=== PATIENT | male | born 1960 | race Caucasian/White ===

== ENCOUNTER 2021-11-24 15:36 | Inpatient (IN) ==
[2021-11-24 20:55] LABS: Basophils # 0.1 K/mcL (0.0-0.2); Basophils % 1.3 %; Eosinophils # 0.2 K/mcL (0.0-0.6); Eosinophils % 3.5 %; Hematocrit 47.5 % (37.5-50.1); Hemoglobin 15.6 g/dL (12.9-16.9); Immature Granulocytes % 0.4 % (0-4); Lymphocytes # 1.2 K/mcL (0.6-4.6); Lymphocytes % 17.8 %; Mean Corpuscular HGB Conc 32.8 g/dL (31.6-35.5); Mean Corpuscular Hemoglobin 28.3 pg (28.0-33.3); Mean Corpuscular Volume 86.2 fL (83.0-100.0); Mean Platelet Volume 10.8 fL (9.4-12.4); Monocytes # 0.6 K/mcL (0.0-1.3); Monocytes % 8.8 %; Neutrophils # 4.6 K/mcL (1.6-8.9); Platelet Count 160 K/mcL (140-400); Red Blood Count 5.51 M/mcL (4.19-5.50); Red Cell Distribution Width 13.4 % (11.5-14.5); Segmented Neutrophils % 68.2 %; White Blood Count 6.8 K/mcL (4.3-11.1)
[2021-11-24 21:05] LABS: INR 1.1
[2021-11-24 21:07] LABS: Activated Partial Thrombo Time 35.3 Seconds (26.0-36.0)
[2021-11-24 21:16] LABS: Alanine Aminotransferase 235 Units/L (7-52); Albumin/Globulin Ratio 1.2 (1.1-2.2); Alkaline Phosphatase 273 Units/L (34-104); Aspartate Amino Transferase 135 Units/L (13-39); BUN/Creatinine Ratio 16 (6-26); Bilirubin,Direct 5.4 mg/dL (0.0-0.2); Bilirubin,Indirect 2.2 mg/dL (0.0-1.0); Bilirubin,Total 7.6 mg/dL (0.3-1.0); Blood Urea Nitrogen 12 mg/dL (6-20); Calcium 9.6 mg/dL (8.6-10.3); Carbon Dioxide 22 mEq/L (23-29); Chloride 100 mEq/L (98-107); Creatine Kinase 48 Units/L (30-223); Globulin 3.3 g/dL (2.4-3.5); Glucose 219 mg/dL (70-105); Lipase 172 Units/L (11-82); Osmolality,Calculated 278 (280-300); Sodium 131 mEq/L (136-145); Total Protein 7.3 g/dL (6.4-8.9); eGFR For African Americans > 60 (> 60); eGFR For Non-African Americans > 60 (> 60)
[2021-11-24] MEDS ORDERED: Piperacillin/Tazobactam 3.375 GM in Water for inj. (sterile) 20 ML IVP ONE (21:18)
[2021-11-24 22:36] LABS: Influenza A PCR Negative (Negative); Influenza B PCR Negative (Negative); Resp. Syncytial Virus PCR Negative (Negative)
[2021-11-24] MEDS ORDERED: 0.9 % Sodium Chloride 1,000 ML IVC ONE (22:37)
[2021-11-24 22:52] LABS: SARS-CoV-2 by PCR (In House) Negative (Negative)
[2021-11-24] MEDS ORDERED: Ringers Solution, Lactated 1,000 ML IVC SCH (23:45)
[2021-11-24] MEDS ORDERED: Naloxone 0.4 MG/ML INJ IVP PRN (23:46)
[2021-11-24] MEDS ORDERED: Ondansetron 4 MG/2 ML VIAL IVP PRN (23:46)
[2021-11-25] MEDS ORDERED: *HR* Dextrose 50 % in Water (Syg) 50 ML SYRINGE IVP PRN (00:15)
[2021-11-25] MEDS ORDERED: D5% in Water 1,000 ML IVC PRN (00:15)
[2021-11-25] MEDS ORDERED: Dextrose Gel 15 GM/37.5 ML TUBE PO PRN ×2 (00:15)
[2021-11-25 02:31] LABS: Bilirubin,Urine Small (Negative); Blood,Urine Negative (Negative); Clarity,Urine Clear (Clear); Color,Urine Dark-Yellow (Yellow); Glucose,Urine (UA) >=1000 mg/dL (Normal); Ketones,Urine 40 mg/dL (Negative); Leukocyte Esterase,Urine Negative (Negative); Mucus,Urine Few per lpf (None-Few); Nitrite,Urine Negative (Negative); PH,Urine 5.5 pH Units (5.0-8.0); Protein,Urine Negative (Neg-Trace); RBC,Urine 0-3 per hpf (0-3); Specific Gravity,Urine 1.014 (1.010-1.025); Urobilinogen,Urine Normal (Normal); WBC,Urine 0-3 per hpf (0-3)
[2021-11-25 03:13] LABS: Eosinophils % 3.9 %; Red Cell Distribution Width 13.5 % (11.5-14.5)
[2021-11-25 03:15] LABS: Basophils # 0.1 K/mcL (0.0-0.2); Basophils % 0.9 %; Eosinophils # 0.3 K/mcL (0.0-0.6); Hematocrit 43.5 % (37.5-50.1); Hemoglobin 14.2 g/dL (12.9-16.9); Immature Granulocytes % 0.5 % (0-4); Immature Platelets 5.6 % (1.1-6.1); Lymphocytes % 16.4 %; Mean Corpuscular HGB Conc 32.6 g/dL (31.6-35.5); Mean Corpuscular Hemoglobin 28.3 pg (28.0-33.3); Mean Corpuscular Volume 86.8 fL (83.0-100.0); Mean Platelet Volume 11.1 fL (9.4-12.4); Monocytes # 0.7 K/mcL (0.0-1.3); Monocytes % 10.2 %; Platelet Count 144 K/mcL (140-400); Red Blood Count 5.01 M/mcL (4.19-5.50); Segmented Neutrophils % 68.1 %; White Blood Count 6.4 K/mcL (4.3-11.1)
[2021-11-25 03:20] LABS: Lymphocytes # 1.1 K/mcL (0.6-4.6); Neutrophils # 4.4 K/mcL (1.6-8.9)
[2021-11-25 03:33] LABS: INR 1.1; Prothrombin Time 12.3 Seconds (9.4-12.1)
[2021-11-25 03:34] LABS: Alanine Aminotransferase 199 Units/L (7-52); Albumin 3.7 g/dL (3.5-5.7); Albumin/Globulin Ratio 1.4 (1.1-2.2); Alkaline Phosphatase 243 Units/L (34-104); Aspartate Amino Transferase 111 Units/L (13-39); BUN/Creatinine Ratio 17 (6-26); Bilirubin,Direct 5.3 mg/dL (0.0-0.2); Bilirubin,Indirect 2.2 mg/dL (0.0-1.0); Bilirubin,Total 7.5 mg/dL (0.3-1.0); Blood Urea Nitrogen 13 mg/dL (6-20); Calcium 8.9 mg/dL (8.6-10.3); Carbon Dioxide 21 mEq/L (23-29); Chloride 102 mEq/L (98-107); Chol/HDL Ratio 8.8 (0-4.9); Cholesterol 212 mg/dL (< 200); Estimated Average Glucose 258 mg/dl; Globulin 2.7 g/dL (2.4-3.5); Glucose 212 mg/dL (70-105); HDL Cholesterol 24 mg/dL (40-59); Hemoglobin A1C 10.6 %; LDL Cholesterol,Calculated 150 mg/dL (< 100); Lipase 254 Units/L (11-82); Osmolality,Calculated 284 (280-300); Phosphorous 3.3 mg/dL (2.7-4.5); Potassium 3.9 mEq/L (3.5-5.1); Sodium 134 mEq/L (136-145); Total Protein 6.4 g/dL (6.4-8.9); Triglycerides 192 mg/dL (< 150); eGFR For African Americans > 60 (> 60); eGFR For Non-African Americans > 60 (> 60)
[2021-11-25 08:41] LABS: Hepatitis B Surface Antigen Nonreactive (Nonreactive)
[2021-11-25] MEDS: Ringers Solution, Lactated 1,000 ML IVC SCH ×2 (08:53→13:49)
[2021-11-25] MEDS: Piperacillin/Tazobactam 3.375 GM in 0.9 % Sodium Chloride Mini Bag 100 ML IVPB SCH ×3 (08:54→23:12)
[2021-11-25] MEDS: Insulin LISPRO 300 UNITS/3 ML VIAL SUBQ SCH ×4 (08:59→23:31)
[2021-11-25 09:10] LABS: Hepatitis A Antibody IgM Nonreactive (Nonreactive)
[2021-11-25 09:11] LABS: Hepatitis B Core IgM Nonreactive (Nonreactive)
[2021-11-25 09:12] LABS: Hepatitis C Virus Antibody Nonreactive (Nonreactive)
[2021-11-25] MEDS: Ipratropium/Albuterol Neb 3 ML IH SCH ×5 (10:03→23:57)
[2021-11-25] MEDS ORDERED: Lidocaine HCL 4 ML Topical Solution (Laryng-O-Jet Kit Sterile Pak) TP ONE (13:08)
[2021-11-25] MEDS ORDERED: Lidocaine -MPF 2% 5 ML VIAL ONE (13:08)
[2021-11-25] MEDS ORDERED: *HR* Rocuronium Bromide 50 MG/5 ML VIAL ONE ×2 (13:08→14:02)
[2021-11-25] MEDS ORDERED: *HR* Propofol 200 MG/20 ML VIAL IVP ONE (13:08)
[2021-11-25] MEDS ORDERED: Ondansetron 4 MG/2 ML VIAL ONE (13:08)
[2021-11-25] MEDS ORDERED: *HR* FentaNYL (PF) 100 MCG/2 ML VIAL ONE (13:46)
[2021-11-25] MEDS ORDERED: Ondansetron 4 MG/2 ML VIAL IVP PRN (14:15)
[2021-11-25] MEDS ORDERED: Gadolinium Contrast Agent (WT Based) IV PRN (14:23)
[2021-11-25] MEDS ORDERED: Indomethacin 50 MG SUPP.RECT RC ONE (14:27)
[2021-11-25] MEDS ORDERED: GADOBUTROL 30 MMOL/30 ML VIAL IVP ONE (16:30)
[2021-11-26] MEDS: Ipratropium/Albuterol Neb 3 ML IH SCH ×3 (04:13→11:34)
[2021-11-26 04:45] LABS: Basophils % 0.6 %; Eosinophils # 0.1 K/mcL (0.0-0.6); Eosinophils % 0.9 %; Hematocrit 41.5 % (37.5-50.1); Hemoglobin 13.9 g/dL (12.9-16.9); Immature Granulocytes % 0.4 % (0-4); Lymphocytes # 1.1 K/mcL (0.6-4.6); Lymphocytes % 15.3 %; Mean Corpuscular HGB Conc 33.5 g/dL (31.6-35.5); Mean Corpuscular Hemoglobin 28.9 pg (28.0-33.3); Mean Corpuscular Volume 86.3 fL (83.0-100.0); Monocytes # 0.7 K/mcL (0.0-1.3); Monocytes % 9.3 %; Neutrophils # 5.1 K/mcL (1.6-8.9); Platelet Count 155 K/mcL (140-400); Red Blood Count 4.81 M/mcL (4.19-5.50); Red Cell Distribution Width 13.5 % (11.5-14.5); Segmented Neutrophils % 73.5 %
[2021-11-26 05:04] LABS: BUN/Creatinine Ratio 25 (6-26); Blood Urea Nitrogen 19 mg/dL (6-20); Calcium 9.1 mg/dL (8.6-10.3); Carbon Dioxide 21 mEq/L (23-29); Chloride 104 mEq/L (98-107); Glucose 259 mg/dL (70-105); Osmolality,Calculated 285 (280-300); Phosphorous 4.1 mg/dL (2.7-4.5); Potassium 3.9 mEq/L (3.5-5.1); Sodium 132 mEq/L (136-145); eGFR For African Americans > 60 (> 60); eGFR For Non-African Americans > 60 (> 60)
[2021-11-26] MEDS: Insulin LISPRO 300 UNITS/3 ML VIAL SUBQ SCH ×2 (05:49→12:26)
[2021-11-26 07:03] LABS: Alanine Aminotransferase 165 Units/L (7-52); Albumin 3.6 g/dL (3.5-5.7); Albumin/Globulin Ratio 1.3 (1.1-2.2); Alkaline Phosphatase 250 Units/L (34-104); Aspartate Amino Transferase 70 Units/L (13-39); Bilirubin,Direct 2.2 mg/dL (0.0-0.2); Bilirubin,Indirect 1.6 mg/dL (0.0-1.0); Bilirubin,Total 3.8 mg/dL (0.3-1.0); Globulin 2.8 g/dL (2.4-3.5); Total Protein 6.4 g/dL (6.4-8.9)
[2021-11-26] MEDS: Piperacillin/Tazobactam 3.375 GM in 0.9 % Sodium Chloride Mini Bag 100 ML IVPB SCH (08:49)
[2021-11-26] MEDS ORDERED: amLODIPine 5 MG TABLET PO SCH (09:00)
[2021-11-26] MEDS ORDERED: lisinopriL 20 MG TABLET PO SCH (09:00)
[2021-11-26] MEDS ORDERED: Acetaminophen 325 MG TABLET PO PRN (10:00)
[2021-11-26 14:13] VITALS: BP 133/66; PULSE 95; TEMP 97.3; O2SAT 95
[2021-11-26] MEDS ORDERED: Insulin LISPRO 300 UNITS/3 ML VIAL SUBQ SCH (16:30)
== END 2021-11-26 15:50 | disposition home or self-care (01) | DRG 444 ==
LOC: 3ANU 15:36 → EMEROOARM 15:36 → 3ANU 11-25
PROVIDERS: ADMIT Student in an Organized Health Care Education/Training Program; ATTEND Student in an Organized Health Care Education/Training Program

== ENCOUNTER 2021-12-15 16:09 | Inpatient (IN) ==
[2021-12-15 18:53] LABS: Basophils # 0.1 K/mcL (0.0-0.2); Basophils % 1.1 %; Eosinophils # 0.1 K/mcL (0.0-0.6); Eosinophils % 2.2 %; Hematocrit 43.7 % (37.5-50.1); Hemoglobin 14.4 g/dL (12.9-16.9); Immature Granulocytes % 0.8 % (0-4); Lymphocytes # 0.9 K/mcL (0.6-4.6); Lymphocytes % 14.4 %; Mean Corpuscular Hemoglobin 28.2 pg (28.0-33.3); Mean Corpuscular Volume 85.7 fL (83.0-100.0); Mean Platelet Volume 11.5 fL (9.4-12.4); Monocytes # 0.6 K/mcL (0.0-1.3); Monocytes % 9.7 %; Neutrophils # 4.6 K/mcL (1.6-8.9); Platelet Count 237 K/mcL (140-400); Red Cell Distribution Width 14.6 % (11.5-14.5); Segmented Neutrophils % 71.8 %; White Blood Count 6.4 K/mcL (4.3-11.1)
[2021-12-15 19:13] LABS: Alanine Aminotransferase 76 Units/L (7-52); Albumin 3.7 g/dL (3.5-5.7); Albumin/Globulin Ratio 0.9 (1.1-2.2); Alkaline Phosphatase 502 Units/L (34-104); Aspartate Amino Transferase 59 Units/L (13-39); BUN/Creatinine Ratio 18 (6-26); Bilirubin,Direct 5.8 mg/dL (0.0-0.2); Bilirubin,Indirect 3.8 mg/dL (0.0-1.0); Bilirubin,Total 9.6 mg/dL (0.3-1.0); Blood Urea Nitrogen 13 mg/dL (6-20); Calcium 9.5 mg/dL (8.6-10.3); Carbon Dioxide 23 mEq/L (23-29); Chloride 90 mEq/L (98-107); Globulin 3.9 g/dL (2.4-3.5); Glucose 328 mg/dL (70-105); Lipase 256 Units/L (11-82); Osmolality,Calculated 277 (280-300); Potassium 4.1 mEq/L (3.5-5.1); Sodium 127 mEq/L (136-145); Total Protein 7.6 g/dL (6.4-8.9); eGFR For African Americans > 60 (> 60); eGFR For Non-African Americans > 60 (> 60)
[2021-12-15] MEDS ORDERED: 0.9 % Sodium Chloride 1,000 ML IVC ONE (19:16)
[2021-12-15 20:04] LABS: Bilirubin,Urine Small (Negative); Blood,Urine Negative (Negative); Clarity,Urine Clear (Clear); Color,Urine Yellow (Yellow); Glucose,Urine (UA) >=1000 mg/dL (Normal); Ketones,Urine 40 mg/dL (Negative); Leukocyte Esterase,Urine Negative (Negative); Mucus,Urine Few per lpf (None-Few); Nitrite,Urine Negative (Negative); Protein,Urine Negative (Neg-Trace); RBC,Urine 0-3 per hpf (0-3); Specific Gravity,Urine 1.025 (1.010-1.025); WBC,Urine 0-3 per hpf (0-3)
[2021-12-15] MEDS ORDERED: Naloxone 0.4 MG/ML INJ IVP PRN (20:30)
[2021-12-15] MEDS ORDERED: Acetaminophen 325 MG TABLET PO PRN (20:30)
[2021-12-15] MEDS ORDERED: *HR* HYDROcodone/Acet 5/325 mg TABLET PO PRN (20:30)
[2021-12-15] MEDS ORDERED: Ondansetron ODT 4 MG TAB.RAPDIS SL PRN (20:30)
[2021-12-15] MEDS ORDERED: Melatonin 3 MG TABLET PO PRN (20:30)
[2021-12-15] MEDS ORDERED: Dextrose Gel 15 GM/37.5 ML TUBE PO PRN ×2 (22:07)
[2021-12-15] MEDS ORDERED: *HR* Dextrose 50 % in Water (Syg) 50 ML SYRINGE IVP PRN (22:07)
[2021-12-15] MEDS ORDERED: D5% in Water 1,000 ML IVC PRN (22:07)
[2021-12-15] MEDS: Insulin DETEMIR 100 UNIT/ML X5UNITS SUBQ SCH (22:29)
[2021-12-15] MEDS: lisinopriL 20 MG TABLET PO SCH (22:29)
[2021-12-16] MEDS: Piperacillin/Tazobactam 3.375 GM in 0.9 % Sodium Chloride Mini Bag 100 ML IVPB SCH ×3 (00:12→16:25)
[2021-12-16] MEDS: Insulin LISPRO 300 UNITS/3 ML VIAL SUBQ SCH ×5 (00:12→20:48)
[2021-12-16 03:23] LABS: Basophils # 0.1 K/mcL (0.0-0.2); Basophils % 1.5 %; Eosinophils # 0.2 K/mcL (0.0-0.6); Immature Granulocytes % 0.4 % (0-4); Lymphocytes # 0.9 K/mcL (0.6-4.6); Lymphocytes % 16.9 %; Mean Corpuscular HGB Conc 33.8 g/dL (31.6-35.5); Mean Corpuscular Hemoglobin 28.4 pg (28.0-33.3); Mean Corpuscular Volume 84.1 fL (83.0-100.0); Mean Platelet Volume 11.1 fL (9.4-12.4); Monocytes # 0.7 K/mcL (0.0-1.3); Monocytes % 12.2 %; Neutrophils # 3.5 K/mcL (1.6-8.9); Platelet Count 194 K/mcL (140-400); Red Cell Distribution Width 14.5 % (11.5-14.5); White Blood Count 5.3 K/mcL (4.3-11.1)
[2021-12-16 03:25] LABS: Hemoglobin 12.5 g/dL (12.9-16.9)
[2021-12-16 03:32] LABS: INR 1.2
[2021-12-16 03:42] LABS: Alanine Aminotransferase 67 Units/L (7-52); Albumin 3.1 g/dL (3.5-5.7); Alkaline Phosphatase 432 Units/L (34-104); Aspartate Amino Transferase 70 Units/L (13-39); BUN/Creatinine Ratio 15 (6-26); Bilirubin,Total 8.9 mg/dL (0.3-1.0); Blood Urea Nitrogen 9 mg/dL (6-20); Calcium 9.1 mg/dL (8.6-10.3); Carbon Dioxide 25 mEq/L (23-29); Chloride 99 mEq/L (98-107); Glucose 183 mg/dL (70-105); Osmolality,Calculated 277 (280-300); Phosphorous 3.2 mg/dL (2.7-4.5); Potassium 3.7 mEq/L (3.5-5.1); Sodium 132 mEq/L (136-145); Total Protein 6.1 g/dL (6.4-8.9); eGFR For African Americans > 60 (> 60); eGFR For Non-African Americans > 60 (> 60)
[2021-12-16] MEDS: lisinopriL 20 MG TABLET PO SCH (08:15)
[2021-12-16] MEDS: Insulin DETEMIR 100 UNIT/ML X5UNITS SUBQ SCH (20:10)
[2021-12-17] MEDS: Piperacillin/Tazobactam 3.375 GM in 0.9 % Sodium Chloride Mini Bag 100 ML IVPB SCH ×3 (00:03→17:10)
[2021-12-17] MEDS: lisinopriL 20 MG TABLET PO SCH (08:49)
[2021-12-17] MEDS: Insulin LISPRO 300 UNITS/3 ML VIAL SUBQ SCH ×4 (08:49→21:26)
[2021-12-17 09:19] LABS: Hematocrit 40.4 % (37.5-50.1); Hemoglobin 13.5 g/dL (12.9-16.9); Mean Corpuscular HGB Conc 33.4 g/dL (31.6-35.5); Mean Corpuscular Hemoglobin 28.7 pg (28.0-33.3); Mean Corpuscular Volume 85.8 fL (83.0-100.0); Mean Platelet Volume 11.5 fL (9.4-12.4); Platelet Count 218 K/mcL (140-400); Red Blood Count 4.71 M/mcL (4.19-5.50); Red Cell Distribution Width 14.7 % (11.5-14.5)
[2021-12-17 09:42] LABS: Alanine Aminotransferase 73 Units/L (7-52); Albumin 3.2 g/dL (3.5-5.7); Alkaline Phosphatase 456 Units/L (34-104); Aspartate Amino Transferase 71 Units/L (13-39); BUN/Creatinine Ratio 12 (6-26); Bilirubin,Total 10.6 mg/dL (0.3-1.0); Blood Urea Nitrogen 9 mg/dL (6-20); Calcium 9.2 mg/dL (8.6-10.3); Carbon Dioxide 27 mEq/L (23-29); Chloride 97 mEq/L (98-107); Globulin 3.2 g/dL (2.4-3.5); Glucose 212 mg/dL (70-105); Osmolality,Calculated 281 (280-300); Potassium 4.3 mEq/L (3.5-5.1); Sodium 133 mEq/L (136-145); Total Protein 6.4 g/dL (6.4-8.9); eGFR For African Americans > 60 (> 60); eGFR For Non-African Americans > 60 (> 60)
[2021-12-17] MEDS ORDERED: Insulin DETEMIR 100 UNIT/ML X5UNITS SUBQ SCH (21:00)
[2021-12-18] MEDS: Piperacillin/Tazobactam 3.375 GM in 0.9 % Sodium Chloride Mini Bag 100 ML IVPB SCH (00:28)
[2021-12-18 01:18] LABS: Influenza A PCR Negative (Negative); Influenza B PCR Negative (Negative); Resp. Syncytial Virus PCR Negative (Negative); SARS-CoV-2 by PCR (In House) Negative (Negative)
[2021-12-18 01:40] LABS: Hematocrit 43.6 % (37.5-50.1); Hemoglobin 13.9 g/dL (12.9-16.9); Mean Corpuscular HGB Conc 31.9 g/dL (31.6-35.5); Mean Corpuscular Hemoglobin 28.7 pg (28.0-33.3); Mean Corpuscular Volume 89.9 fL (83.0-100.0); Mean Platelet Volume 10.9 fL (9.4-12.4); Platelet Count 205 K/mcL (140-400); Red Blood Count 4.85 M/mcL (4.19-5.50); Red Cell Distribution Width 15.2 % (11.5-14.5); White Blood Count 6.3 K/mcL (4.3-11.1)
[2021-12-18 02:00] LABS: Alanine Aminotransferase 68 Units/L (7-52); Albumin 3.2 g/dL (3.5-5.7); Alkaline Phosphatase 449 Units/L (34-104); Aspartate Amino Transferase 60 Units/L (13-39); BUN/Creatinine Ratio 11 (6-26); Bilirubin,Total 10.9 mg/dL (0.3-1.0); Blood Urea Nitrogen 8 mg/dL (6-20); Calcium 9.4 mg/dL (8.6-10.3); Carbon Dioxide 27 mEq/L (23-29); Chloride 98 mEq/L (98-107); Globulin 3.2 g/dL (2.4-3.5); Glucose 167 mg/dL (70-105); Osmolality,Calculated 278 (280-300); Potassium 4.2 mEq/L (3.5-5.1); Sodium 133 mEq/L (136-145); Total Protein 6.4 g/dL (6.4-8.9); eGFR For African Americans > 60 (> 60); eGFR For Non-African Americans > 60 (> 60)
[2021-12-18 03:12] VITALS: BP 158/87; PULSE 73; TEMP 98.1; O2SAT 95
== END 2021-12-18 04:25 | disposition short-term general hospital (02) | DRG 442 ==
LOC: 2ANU 16:09 → EMEROOARM 16:09 → SUATTDRO 19:44 → 2ANU 20:26
PROVIDERS: ADMIT Internal Medicine; ATTEND Internal Medicine

== ENCOUNTER 2022-02-16 11:06 | Observation (INO) ==
[2022-02-16] MEDS ORDERED: D5% in Water 1,000 ML IVC PRN (13:45)
[2022-02-16] MEDS ORDERED: *HR* Dextrose 50 % in Water (Syg) 50 ML SYRINGE IVP PRN (13:45)
[2022-02-16] MEDS ORDERED: Acetaminophen 325 MG TABLET PO PRN (13:45)
[2022-02-16] MEDS ORDERED: Naloxone 0.4 MG/ML INJ IVP PRN (13:45)
[2022-02-16] MEDS ORDERED: Ondansetron 4 MG/2 ML VIAL IVP PRN (13:45)
[2022-02-16] MEDS ORDERED: Dextrose 4 GM Chewable Tablets PO PRN ×2 (13:45)
[2022-02-16 14:16] LABS: Basophils % 0.2 %; Eosinophils # 0.1 K/mcL (0.0-0.6); Eosinophils % 1.4 %; Hemoglobin 10.5 g/dL (12.9-16.9); Lymphocytes # 0.9 K/mcL (0.6-4.6); Lymphocytes % 9.4 %; Mean Corpuscular HGB Conc 32.8 g/dL (31.6-35.5); Mean Corpuscular Hemoglobin 27.9 pg (28.0-33.3); Mean Corpuscular Volume 84.9 fL (83.0-100.0); Mean Platelet Volume 10.2 fL (9.4-12.4); Monocytes # 0.7 K/mcL (0.0-1.3); Monocytes % 7.5 %; Neutrophils # 7.7 K/mcL (1.6-8.9); Platelet Count 200 K/mcL (140-400); Red Blood Count 3.77 M/mcL (4.19-5.50); Red Cell Distribution Width 15.9 % (11.5-14.5); Segmented Neutrophils % 80.5 %; White Blood Count 9.6 K/mcL (4.3-11.1)
[2022-02-16 14:42] LABS: BUN/Creatinine Ratio 53 (6-26); Blood Urea Nitrogen 19 mg/dL (6-20); Calcium 11.4 mg/dL (8.6-10.3); Carbon Dioxide 30 mEq/L (23-29); Chloride 103 mEq/L (98-107); Glucose 168 mg/dL (70-105); Magnesium 1.8 mg/dL (1.6-2.6); Osmolality,Calculated 298 (280-300); Potassium 3.3 mEq/L (3.5-5.1); Sodium 141 mEq/L (136-145); eGFR For African Americans > 60 (> 60); eGFR For Non-African Americans > 60 (> 60)
[2022-02-16 14:54] LABS: Troponin I 0.41 ng/mL (< 0.04)
[2022-02-16] MEDS ORDERED: Isovue-370 500 ML BOTTLE IVP ONE (15:00)
[2022-02-16] MEDS: *HR* Metoprolol 5 MG/5 ML VIAL IVP PRN ×2 (17:07→23:49)
[2022-02-16] MEDS ORDERED: *HR* LORazepam 1 MG TABLET PO PRN (17:48)
[2022-02-16] MEDS: Insulin LISPRO 300 UNITS/3 ML VIAL SUBQ SCH (18:17)
[2022-02-16] MEDS ORDERED: *HR* Heparin 5,000 UNIT/ML VIAL IVP PRN ×2 (19:48)
[2022-02-16] MEDS ORDERED: Heparin 25,000UNIT/250ML 1/2NS 25,000 UNIT/250 ML IV.SOLN IVC SCH (20:00)
[2022-02-16 20:25] LABS: Hematocrit 33.6 % (37.5-50.1); Hemoglobin 10.8 g/dL (12.9-16.9); Mean Corpuscular HGB Conc 32.1 g/dL (31.6-35.5); Mean Corpuscular Hemoglobin 27.7 pg (28.0-33.3); Mean Corpuscular Volume 86.2 fL (83.0-100.0); Mean Platelet Volume 10.1 fL (9.4-12.4); Platelet Count 220 K/mcL (140-400); Red Cell Distribution Width 15.9 % (11.5-14.5); White Blood Count 12.8 K/mcL (4.3-11.1)
[2022-02-16 20:34] LABS: INR 1.4; Prothrombin Time 15.4 Seconds (9.4-12.1)
[2022-02-16] MEDS ORDERED: Insulin LISPRO 300 UNITS/3 ML VIAL SUBQ SCH (21:00)
[2022-02-16] MEDS ORDERED: Insulin DETEMIR 100 UNIT/ML X5UNITS SUBQ SCH ×2 (21:00)
[2022-02-17 03:02] VITALS: TEMP 97.8
[2022-02-17 06:24] VITALS: BP 142/95; PULSE 114; O2SAT 95
[2022-02-17] MEDS: *HR* Metoprolol 5 MG/5 ML VIAL IVP PRN (06:42)
[2022-02-17] MEDS: Insulin LISPRO 300 UNITS/3 ML VIAL SUBQ SCH (07:50)
[2022-02-17] MEDS ORDERED: Perflutren Lipid Microsphere 1.3 ML in 0.9 % Sodium Chloride 8.7 ML IVP PRN (07:53)
[2022-02-17] MEDS ORDERED: Aspirin Enteric Coated 81 MG Tablet PO SCH (09:00)
[2022-02-17 10:09] LABS: Hematocrit 32.8 % (37.5-50.1); Hemoglobin 10.8 g/dL (12.9-16.9); Mean Corpuscular HGB Conc 32.9 g/dL (31.6-35.5); Mean Corpuscular Hemoglobin 28.4 pg (28.0-33.3); Mean Corpuscular Volume 86.3 fL (83.0-100.0); Mean Platelet Volume 10.1 fL (9.4-12.4); Platelet Count 205 K/mcL (140-400); White Blood Count 10.8 K/mcL (4.3-11.1)
[2022-02-17 10:30] LABS: BUN/Creatinine Ratio 58 (6-26); Blood Urea Nitrogen 25 mg/dL (6-20); Calcium 11.8 mg/dL (8.6-10.3); Carbon Dioxide 35 mEq/L (23-29); Chloride 101 mEq/L (98-107); Glucose 170 mg/dL (70-105); Magnesium 1.8 mg/dL (1.6-2.6); Osmolality,Calculated 304 (280-300); Potassium 3.3 mEq/L (3.5-5.1); Sodium 143 mEq/L (136-145); Troponin I 0.28 ng/mL (< 0.04); eGFR For African Americans > 60 (> 60); eGFR For Non-African Americans > 60 (> 60)
== END 2022-02-17 12:31 | disposition short-term general hospital (02) ==
LOC: INTOOBSV 13:14 → 2NENU 13:14
PROVIDERS: ADMIT Internal Medicine; ATTEND Internal Medicine